=== PATIENT | female | born 1965 | race Caucasian/White ===

== ENCOUNTER → 2019-11-07 11:54 | Outpatient (CLI) | payer BC, SELFPAY ==
--- NOTE | ~2019-11-07 | XR_ITS ---
EXAMINATION: XR chest 2V EXAM DATE: 11/07/2019 13:12 INDICATION: Shortness of breath, cough intermittent. TECHNIQUE: Frontal and lateral projections of the chest obtained and reviewed. Comparison is made to prior examination from 04/20/2019. FINDINGS: The lungs are clear. There are no pleural effusions. The cardiomediastinal silhouette is within normal limits. There is no pneumothorax suspected. The bones and soft tissues are unremarkab le. IMPRESSION: Normal chest x-ray exam. Reviewed, dictated and finalized at location A. IMPRESSION: Normal chest x-ray exam.
== END ==
PROVIDERS: PCP Family Medicine
DX: R06.02 Shortness of breath (principal)
CPT/HCPCS: 71046

== ENCOUNTER → 2020-07-24 13:11 | Outpatient (CLI) | payer BC, SELFPAY ==
--- NOTE | ~2020-07-24 | MM_ITS ---
EXAMINATION: MM screening [facility] BI w niru HISTORY: Screening mammogram TECHNIQUE: Craniocaudal and mediolateral oblique 3-D tomosynthesis images were obtained and synthetic 2-D images were generated. CAD analysis was submitted and interpreted. COMPARISON: 03/11/2018, 07/23/2015, 05/31/2013 bilateral digital screening mammogram examinations BREAST PARENCHYMAL COMPOSITION: There are scattered areas of fibroglandular density. FINDINGS: There is no evidence of suspicious mass, calcification, or architectural distortion to sugg est malignancy in either breast. There has been no suspicious interval change. IMPRESSION: 1. No mammographic evidence of malignancy. 2. Recommend routine screening mammography in one year. BI-RADS Category 1: Negative Reviewed, dictated and finalized at location A. T ETIOLOGIST
== END ==
PROVIDERS: Visit Provider Nurse Practitioner Obstetrics & Gynecology
DX: Z12.31 Encounter for screening mammogram for malignant neoplasm of breast (principal)
CPT/HCPCS: 77063; 77067

== ENCOUNTER 2020-09-18 12:47 | Outpatient (CLI) | payer BC, SELFPAY ==
--- NOTE | 2020-09-18 12:59 | ECHO_ITS ---
Patient Info Name: Bhumi Rogel Age: 55 years : 1965 Gender: Female Ht: 66 in Wt: 156 lbs BSA: 1.83 m2 HR: 59 bpm BP: 109 / 73 mmHg Technical Quality: Good Exam Date: 09/18/2020 1:31 PM Exam Location: [facility] Patient Status: Outpatient Admit Date: 09/18/2020 Staff Ordering Physician: Jeremy Fonseca MD Reconnaissance Man: Domo Mcadams RDCS, RT Attending Provider: Jeremy Fonseca MD Referring Physician: Raymundo CHO; Exam Type: CA echo doppler color flow Study Info Indications R06.02 - Shortness of breath Complete two-dimensional, color flow and Doppler transthoracic echocardiogram is performed. Strain analysis performed. Summary 1. Complete two-dimensional, color flow and Doppler transthoracic echocardiogram is performed. 2. Left ventricular chamber dimension is normal. 3. Left ventricular systolic function is normal, estimated at 60-65%. 4. The left ventricular diastolic function is grade II diastolic dysfunction. 5. E/e' 6 is not elevated. 6. Global longitudinal strain is normal at -20.0%. 7. There is trivial pericardial effusion. Left Ventricle E/e' 6 is not elevated. Global longitudinal strain is normal at -20.0%. Left ventricular chamber dimension is normal. Left ventricular systolic function is normal, estimated at 60-65%. The left ventricular diastolic function is grade II diastolic dysfunction. Right Ventricle Right ventricular systolic function is normal with normal TAPSE at 1.9 cm.. Right ventricular chamber dimension is normal. Left Atria Left atrial chamber dimension is normal. Right Atria Right atrial chamber dimension is normal. Aortic Valve The aortic valve is trileaflet. There is no aortic valve stenosis. There is no aortic valve regurgitation. Pulmonic Valve There is no pulmonic regurgitation. Mitral Valve There is no mitral valve stenosis. There is no mitral valve regurgitation. Tricuspid Valve There is no tricuspid valve regurgitation. Pericardium/Pleural There is trivial pericardial effusion. Inferior Vena Cava Normal inferior vena cava with >50% collapse upon inspiration consistent with normal right atrial pressure, 5 mmHg. Aorta The aortic root size at the sinus of Valsalva is normal. Left Ventricular Outflow Tract Name Value Normal LVOT 2D LVOT Diameter 2.0 cm LVOT Doppler LVOT Peak Gradient 3 mmHg LVOT Mean Gradient 2 mmHg LVOT VTI 18 cm LVOT VTI/AV VTI Ratio 0.9 LVOT Stroke Volume 59 ml LVOT CO 3.8 l/min LVOT CI 2.1 l/min/m2 Mitral Valve Name Value Normal MV Doppler MV Decel Evangeline 208 cm/s2 MV PHT
== END 2020-09-18 12:48 | disposition home or self-care (01) ==
LOC: ANHCARD 12:48
PROVIDERS: Visit Provider Internal Medicine Pulmonary Disease
DX: R07.89 Other chest pain (principal); R06.02 Shortness of breath
CPT/HCPCS: 93306

== ENCOUNTER 2020-10-01 12:38 | Outpatient (CLI) | payer BC, SELFPAY ==
--- NOTE | 2020-10-01 16:04 | P.PCNPFT_ITS ---
PFT Interpretation This is a methacholine challenge test. The test was performed and interpreted in accordance with the 1999 [place] [employer] guidelines. The test was performed with increasing doses of nebulized methacholine using a 2 minute tidal breathing protocol. The best post-methacholine FEV1 values were used to calculate the change from the post diluent FEV1. Findings: Baseline FEV1 2.61 L, 106% predicted. Post diluent FEV1 2.43 L Post 0.025 mg/ml methacholine FEV1 2.45 L, increased 1% Post 0.25 mg/mL methacholine FEV1 2.46 L, increased 1% Post 2.5 mg/mL methacholine FEV1 2.08 L, decreased 14% Post 10 mg/mL methacholine FEV1 1.79 L, decreased 26% Post albuterol nebulization FEV1 2.59 L Impression: The PC20 is 4.79 mg/ml which is categorized as borderline bronchial hyperresponsiveness. There are no prior methacholine challenge studies for comparison
== END 2020-10-01 12:39 | disposition home or self-care (01) ==
PROVIDERS: PCP Internal Medicine; Visit Provider Internal Medicine Pulmonary Disease
DX: R06.02 Shortness of breath (principal)
CPT/HCPCS: 94070; J7674

== ENCOUNTER → 2020-10-19 01:32 | Outpatient (CLI) | payer BC, SELFPAY ==
[2020-10-19 19:42] LABS: SARS-CoV-2 RNA PCR Negative
== END ==
PROVIDERS: PCP Internal Medicine; Visit Provider Internal Medicine Gastroenterology
DX: Z01.812 Encounter for preprocedural laboratory examination (principal); Z20.822 Contact with and (suspected) exposure to COVID-19
CPT/HCPCS: C9803; U0003; U0005

== ENCOUNTER → 2020-12-03 08:05 | Outpatient (CLI) | payer BC, SELFPAY ==
[2020-12-03 20:44] LABS: SARS-CoV-2 RNA PCR Negative
== END ==
PROVIDERS: PCP Internal Medicine; Visit Provider Internal Medicine Gastroenterology
DX: Z01.812 Encounter for preprocedural laboratory examination (principal); Z20.822 Contact with and (suspected) exposure to COVID-19
CPT/HCPCS: C9803; U0003; U0005

== ENCOUNTER 2020-12-06 00:13 | Day surgery (SDC) | payer BC, SELFPAY ==
[2020-10-15 10:11] VITALS: BMI 26.4
[2020-11-25 14:45] VITALS: BMI 25.7
[2020-12-06 10:17] VITALS: BP 101/62; PULSE 74; RESP 18; TEMP 36.4; O2SAT 99
[2020-12-06] MEDS: LACTATED RINGERS 1,000 ML 150 ML IV CONT (10:35)
--- NOTE | 2020-12-06 11:07 | WPDANESEPPF ---
Anes - Initial Pre Proc Eval Procedure: Operation Date: 12/06/20 11:00 Proposed Procedures p Screening Colonoscopy - Nile Rojo MD Date/Time: 12/06/20 11:07 Surgeon: Nile Rojo MD Pre Op Diagnosis: neoplasm screening Patient Data Age: 55 Gender: F Height: 5 ft 5 in Weight: 72 kg Last Vital Signs Temp 97.5 F L 12/06/20 10:17 Pulse 74 12/06/20 10:17 Resp 18 12/06/20 10:17 BP 101/62 12/06/20 10:17 Pulse Ox 99 12/06/20 10:17 Allergies Allergy/AdvReac Type Severity Reaction Status Date / Time No Known Allergies Allergy Mild Verified 12/06/20 10:04 Home Medications Medication Instructions Recorded Confirmed Type lactobacillus combination no.8 3 3,000 mmu cells PO DAILY 08/22/20 11/08/20 History billion cell capsule calcium citrate-vitamin D3 1 tablet PO DAILY 10/15/20 11/08/20 History [Citracal-D3 Petites] afizayhb-qyar-YJ-calcium-mins 1 tablet PO DAILY 10/15/20 11/08/20 History [Women's One Daily] omega-3 fatty acids-fish oil 1 cap PO DAILY 10/15/20 11/08/20 History [[place] 3 Fish Oil] fluticasone 250 mcg-salmeterol 50 1 inh INHALATION BID #60 ea 10/24/20 11/25/20 Rx mcg/dose blistr powdr for inhalation Patient hx anesthesia problems: none Family hx anesthesia problems: none PMFSH Past Medical History Medical History delivery delivered Chiari malformation type I Ovary absent Shortness of Breath Family History Family History Mother Hypertension Dementia Father COPD (chronic obstructive pulmonary disease) Hypertension Social History Social History Smoking status: Never smoker Second hand tobacco smoke exposure: Yes Alcohol intake: never Substance use: never Substance use type: does not use Living arrangements: with family 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 Gender identity (if verbalized by the patient): Female Spiritual care concerns: No Agree to blood products: Yes Anes - Eval Final PreProcedure Day of Procedure 12/06/20 11:07 Patient weight: normal Heart: regular rate and rhythm Lungs: clear to auscultation Airway: Mallampati scale class II Neurological: alert and oriented Last oral intake: >/= 8 hours ASA classification: II Emergent: no Anesthetic plan: proceed Anesthesia type and monitoring: general GIVS and standard monitoring Informed Consent: The patient's anesthetic plan and its attendant risks and benefits were discussed with the patient/family/POA. Questions were solicited and answers provided to the satisfaction of the patient/family/POA.
--- NOTE | 2020-12-06 11:09 | PM.HPGS ---
History of Present Illness History of Present Illness Consent: Risks, benefits, and alternatives have been discussed and questions answered. Patient agrees to proceed with procedure. Chief complaint: neoplasm screening Narrative: Bhumi Rogel is a 55 year old female here for first screening colonoscopy Review of Systems Constitutional: Constitutional: Denies headache(s) and Denies weakness Eyes: Eyes: Denies blurry vision ENT: Reports Normal hearing present, Denies headache(s) and Denies neck pain Cardiovascular: Cardiovascular: Denies chest pain and Denies dyspnea Respiratory: Respiratory: Denies dyspnea Gastrointestinal: Gastrointestinal: Reports no additional gastrointestinal complaints Genitourinary: Genitourinary: Denies dysuria Musculoskeletal: Musculoskeletal: Denies neck pain Integumentary/Breasts: Skin/Breast: Denies dry skin Neurologic: Reports Normal hearing present, Denies headache(s) and Denies weakness Psychiatric: Psychiatric: Denies anxiety Endocrine: Endocrine: Denies change in body appearance Hematologic/Lymphatic: Hematologic/Lymphatic: Denies easy bleeding Allergic/Immunologic: Allergic/Immunologic: Denies urticaria PMF Past Medical History Medical History delivery delivered Chiari malformation type I Ovary absent Shortness of Breath Family History Family History Mother Hypertension Dementia Father COPD (chronic obstructive pulmonary disease) Hypertension Social History Social History Smoking status: Never smoker Second hand tobacco smoke exposure: Yes Alcohol intake: never Substance use: never Substance use type: does not use Living arrangements: with family 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 Gender identity (if verbalized by the patient): Female Spiritual care concerns: No Agree to blood products: Yes Meds Home Medications and Allergies Home Medications Medication Instructions Recorded Confirmed Type lactobacillus combination no.8 3 3,000 mmu cells PO DAILY 08/22/20 11/08/20 History billion cell capsule calcium citrate-vitamin D3 1 tablet PO DAILY 10/15/20 11/08/20 History [Citracal-D3 Petites] ksxvfzhx-nsyo-LI-calcium-mins 1 tablet PO DAILY 10/15/20 11/08/20 History [Women's One Daily] omega-3 fatty acids-fish oil 1 cap PO DAILY 10/15/20 11/08/20 History [[place] 3 Fish Oil] fluticasone 250 mcg-salmeterol 50 1 inh INHALATION BID #60 ea 10/24/20 11/25/20 Rx mcg/dose blistr powdr for inhalation Allergies Allergy/AdvReac Type Severity Reaction Status Date / Time No Known Allergies Allergy Mild Verified 12/06/20 10:04 Vital Signs Vital Signs - 24 hr 12/06/20 10:17 Temperature 97.5 F L Pulse Rate 74 Respiratory Rate 18 Blood Pressure 101/62 Pulse Oximetry 99 Exam Const: General: comfortable and no acute distress HENMT: General nose exam: Normal nares present Eyes: General: appearance normal, both eyes and all related structures Neck: Neck: no JVD Resp: Auscultation: clear to auscultation bilaterally Cardio: Rate: regular rate Rhythm: regular rhythm GI: Inspection: non-distended GI Palp: Yes Soft to palpation Skin: General skin exam: normal color Neuro: General: gait normal Speech: normal speech Extrem: General: normal to inspection Psych: Mental Status: mental status grossly normal Assessment and Plan Assessment and plan (1) Colon cancer screening: Code(s): Z12.11 - Encounter for screening for malignant neoplasm of colon Status: Acute Assessment and Plan: colonoscopy
[2020-12-06 11:29] VITALS: BP 96/61; PULSE 70; RESP 18; O2SAT 98
[2020-12-06 11:39] VITALS: BP 103/69; PULSE 64; RESP 18; O2SAT 100
[2020-12-06 11:49] VITALS: BP 109/63; PULSE 70; RESP 20; O2SAT 100
--- NOTE | 2020-12-06 11:55 | SUR.PHASEII ---
PT'S LEFT EYE SLIGHTLY REDDENED, WATERY, AND BLURRY TO PT. EASING UP PER PT. DR REYNOSO SEEING PT. NO NEW ORDERS. PT INSTRUCTED TO USE ARTIFICIAL TEARS AT HOME NEEDED. PT STATES UNDERSTANDING AND APPROVAL.
== END 2020-12-06 11:58 | disposition home or self-care (01) ==
PROVIDERS: PCP Internal Medicine; Visit Provider Internal Medicine Gastroenterology
PROC: 0DJD8ZZ Inspection of Lower Intestinal Tract, Via Natural or Artificial Opening Endoscopic (ICD-10-PCS; CPT 45378; principal; 2020-12-06 11:00)
DX: Z12.11 Encounter for screening for malignant neoplasm of colon (principal); K64.8 Other hemorrhoids; G93.5 Compression of brain
CPT/HCPCS: 45378; J2704; J7120

== ENCOUNTER 2021-08-01 08:34 | Outpatient (RCR) | payer BC, SELFPAY ==
[2021-08-01] MEDS: ACETAMINOPHEN 325 MG TABLET 650 MG PO (14:50)
[2021-08-01] MEDS: FAMOTIDINE 20 MG TABLET PO (14:50)
[2021-08-01] MEDS: diphenhydrAMINE HCl CAP 25 MG CAPSULE PO (14:50)
[2021-08-01 14:54] VITALS: BP 126/68; PULSE 62; RESP 20; TEMP 36.4; O2SAT 100
[2021-08-01 16:06] VITALS: BP 107/70; PULSE 57; RESP 20; TEMP 36.1; O2SAT 100
--- NOTE | 2021-08-04 08:58 | PC.NURSE ---
Tried calling Ms Rogel and had to leave a message for her to return the call.
--- NOTE | 2021-08-04 09:27 | PC.NURSE ---
MS Pebbles called back and stated she is feeling better and has no questions at this time.
== END 2021-08-01 17:00 ==
LOC: AMCINF 08:34
PROVIDERS: PCP Internal Medicine; Visit Provider Internal Medicine Hematology & Oncology
DX: U07.1 COVID-19 (principal)
CPT/HCPCS: A9270; M0243; Q0244

== ENCOUNTER → 2022-04-30 11:11 | Outpatient (CLI) | payer BC, SELFPAY ==
--- NOTE | ~2022-04-30 | XR_ITS ---
EXAMINATION: XR hand LT 2V, XR wrist RT 2V, XR wrist LT 2V, XR hand RT 2V DATE: 04/30/2022 11:39 INDICATION: Bilateral hand and wrist pain TECHNIQUE: 1. Posteroanterior and lateral views of the left wrist were obtained. 2. Dorsal palmar and lateral views of the left hand were obtained. 3. Posteroanterior and lateral views of the right wrist were obtained. 4. Dorsal palmar and lateral views of the right hand were obtained. COMPARISON: None. FINDINGS: Normal alignment of the bilateral hands and wrists. No fracture identified. Minimal to mild polyarti cular osteoarthritis at the metacarpophalangeal and interphalangeal joints of both hands with distal predominance. No erosions to suggest inflammatory arthritis. Soft tissues are unremarkable.. IMPRESSION: 1. 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 Reviewed, dictated and finalized at location A. IMPRESSION: 1. 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 IMPRESSION: 1. 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 IMPRESSION: 1. 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
== END ==
PROVIDERS: PCP Internal Medicine; Visit Provider Internal Medicine Rheumatology
DX: M19.042 Primary osteoarthritis, left hand (principal); M19.041 Primary osteoarthritis, right hand; M19.032 Primary osteoarthritis, left wrist; M19.031 Primary osteoarthritis, right wrist
CPT/HCPCS: 73100; 73120

== ENCOUNTER → 2022-11-10 10:51 | Outpatient (CLI) | payer BC, SELFPAY ==
--- NOTE | ~2022-11-10 | MM_ITS ---
EXAMINATION: MM screening [facility] BI w niru HISTORY: Screening TECHNIQUE: Craniocaudal and mediolateral oblique 3-D tomosynthesis images were obtained and synthetic 2-D images were generated. CAD analysis was submitted and interpreted. COMPARISON: Comparison to multiple prior studies sequentially, with oldest reviewed study dated 08/2014. BREAST PARENCHYMAL COMPOSITION: There are scattered areas of fibroglandular density. FINDINGS: There is no evidence of suspicious mass, calcification, or architectural distortion to sugg est malignancy in either breast. There has been no suspicious interval change. IMPRESSION: 1. No mammographic evidence of malignancy. 2. Recommend routine screening mammography in one year. BI-RADS Category 1: Negative Reviewed, dictated and finalized at location A.
== END ==
PROVIDERS: PCP Internal Medicine; Visit Provider Internal Medicine
DX: Z12.31 Encounter for screening mammogram for malignant neoplasm of breast (principal)
CPT/HCPCS: 77063; 77067

== ENCOUNTER → 2023-09-29 14:07 | Outpatient (REF) | payer BC, SELFPAY | LOC: ANHLAB 14:07 | PROVIDERS: PCP Internal Medicine; Visit Provider Plastic Surgery | DX: M60.242 Foreign body granuloma of soft tissue, not elsewhere classified, left hand (principal); R22.32 Localized swelling, mass and lump, left upper limb | CPT/HCPCS: 88305 ==

== ENCOUNTER 2024-03-07 13:00 | Outpatient (RCR) | payer BC, SELFPAY ==
--- NOTE | 2024-02-23 14:05 | OTOPEVAL1 ---
Assessment and note entered by Deandre Morfin, OTR/Ruby, CHT Evaluation Information Diagnosis (R) carpal tunnel, (R) trigger thumb Subjective Information Patient is s/p trigger thumb release and carpal tunnel release 02/04/24. She is right handed. She reports she is getting better everyday. She reports residual tenderness at the palm. Difficulties with gross gripping tasks, opening a jar. 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 She reports she no longer is experiencing paresthesia in the right hand. Reported Pain Level Pain Score 2: Self Report Assessment OT Clinical Summary Patient referred to OT s/p right carpal tunnel release and right trigger thumb release. She presents today with intact and functional ROM, residual tightness with hook fist. She is having very minimal pain and no longer reports of paresthesia. No catching of the thumb with active ROM. Issued tendon glide HEP and stretches. Continued skilled OT indicated to progress HEP and for use of modalities for stiffness. Plan of Care Interventions Therapeutic Exercise,Therapeutic Activities, Paraffin OT Services Indicated Yes Treatment Frequency and 1x/week for 3 visits Duration These treatments will address the objective and functional deficits as defined above. The patient will be advanced safely and appropriately in order for the patient to progress towards his/her prior level of function. Additional exercises will be introduced and as well as a comprehensive home exercise program upon discharge, if needed, ?to ensure carryover of functional gains achieved in the clinic. This treatment plan has been reviewed and agreement upon by the patient.
--- NOTE | 2024-02-23 14:05 | OPREHPOC ---
Outpatient Therapy Plan of Care This is a Multidisciplinary Plan of Care that may contain components documented by all disciplines (PT, OT, and ST.) OT Problem 1 OT Problem #1 Knowledge Deficit OT Goal 1 Goal 1. Patient to be independent with instructed materials. Target Visit 3 OT Goal 1 Goal 1. Be able to make a hook fist without reports of tightness. Target Visit 3 OT Problem 3 OT Problem #3 Impaired Strength OT Goal 1 Goal 1. 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 Target Visit 3
--- NOTE | 2024-03-07 13:43 | OTOPDC ---
Assessment and note entered by Deandre Morfin, OTR/L, CHT OT Discharge Summary 03/07/24 Assessment Status Discharge Diagnosis (R) carpal tunnel, (R) trigger thumb release Subjective Information Patient reports overall improvement. States she over did it last week using some tools and she had a flair up in swelling and pain, this has improved, but she reports she learned her limit. She states she is getting better with gripping and opening jars. 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 Wrist, finger, and thumb ROM is WNL. (R) swatch folder improved to 49 lbs. (norm 51 lbs.) (R) lateral pinch 14 lbs. (norm 12 lbs.) (R) palmar pinch 11 lbs. (norm 11 lbs.) Reported Pain Level Pain Score 0: Self Report Additional Pain Score Comments Patient reporting no pain at rest. She reports very rare sharp twinges of pain, rated at 5/10. Assessment OT Clinical Summary Patient referred to OT s/p right carpal tunnel release and right trigger thumb release. She has intact and functional ROM and strength of the right hand/wrist. She is currently independent with all materials. Recommending she continue scar mobilization and tendon glides for optimal results. D/C OT with HEP. Plan of Care OT Services Indicated No
== END 2024-03-07 14:12 | disposition home or self-care (01) ==
LOC: ANHGOSHOT 13:00
PROVIDERS: PCP Internal Medicine
DX: M65.311 Trigger thumb, right thumb (principal); G56.01 Carpal tunnel syndrome, right upper limb
CPT/HCPCS: 97018; 97110; 97140; 97165